=== PATIENT | male | born 1945 | race Caucasian/White ===

== ENCOUNTER 2020-02-29 13:11 | Emergency (ER) | payer MEDICARE, MEDICAID, SELFPAY ==
--- NOTE | ~2020-02-29 | CT_ITS ---
EXAMINATION: CT abdomen pelvis w con INDICATION: Diarrhea and lower abdominal pain TECHNIQUE: Computed tomographic images of the abdomen and pelvis were obtained after the administrati on of 100 cc of Omnipaque 350 intravenous contrast. The dose-length product (DLP) was 263.93 mGy-cm. Automated exposure control and iterative reconstruction technique were employed. COMPARISON: None available FINDINGS: Minimal dependent atelectasis is present in the lung bases. The heart size is normal. There is a small sliding hiatal hernia. The liver, spleen, pancreas, gallbladder, and adrenal glands are n ormal. Cysts of the kidneys measure up to 9 mm on the right. There is a 3 mm nonobstructing stone of the left kidney lower pole. No pathologically enlarged abdominal or pelvic lymph nodes are identified . There is no free intraperitoneal gas or evidence of bowel obstruction. There is calcified atheroscl erosis of the aorta and many of the other arteries. Colonic diverticulosis is present without evidenc e of diverticulitis. There is a right inguinal hernia containing a short segment of nonobstructed sma ll bowel. A diverticulum is noted in the left posterolateral bladder wall. There is severe lumbar spo ndylosis. IMPRESSION: 1. No CT correlate for the patient's symptoms. 2. Nonobstructing left nephrolithiasis. 3. Diverticulosis without diverticulitis. 4. Right inguinal hernia containing a short segment of nonobstructed small bowel. Reviewed, dictated and finalized at location A. IMPRESSION: 1. No CT correlate for the patient's symptoms. 2. Nonobstructing left nephrolithiasis. 3. Diverticulosis without diverticulitis. 4. Right inguinal hernia containing a short segment of nonobstructed small maya l.
[2020-02-29 13:27] VITALS: BP 130/61; PULSE 73; RESP 20; TEMP 36.7; O2SAT 100
--- NOTE | 2020-02-29 14:36 | ED.NAVMDI ---
HPI - Nausea/Vomiting/Diarrhea General Chief complaint: Nausea/Vomiting/Diarrhea Stated complaint: diarrhea Time Seen by Provider: 02/29/20 14:19 Source: patient Mode of arrival: ambulatory Limitations: no limitations History of Present Illness HPI Narrative: This is a 74 year old male that presents to the ER for diarrhea x 3 months. Reports a couple episodes of diarrhea daily. Reports he has had some lower abdominal pain. Reports sometimes the stool looks dark. Denies fever, nausea, vomiting, dysuria or hematuria. Related Data Home Medications Medication Instructions Recorded Confirmed No Home Medications 02/29/20 02/29/20 Allergies Allergy/AdvReac Type Severity Reaction Status Date / Time No Known Allergies Allergy Verified 02/29/20 13:30 Review of Systems Review of Systems: Narrative: CONSTITUTIONAL: Denies fever GASTROINTESTINAL: Reports abdominal pain and diarrhea. Denies nausea, vomiting GENITOURINARY: Denies dysuria or hematuria. All systems reviewed & are unremarkable except as noted in HPI and below PMFSH Past Medical History Medical History (Updated 02/29/20 @ 16:49 by Lucrecia Schultz PA-C) No active medical problems Social History Social History (Updated 02/29/20 @ 14:38 by Lucrecia Schultz PA-C) Smoking status: Never smoker Exam Narrative: Exam Narrative: GENERAL: Well-appearing, well-nourished, and in no acute distress. HEAD: Normocephalic, atraumatic. EYES: EOMI. CHEST: Clear to auscultation. No respiratory distress. No wheezes rales or rhonchi HEART: Regular rate and rhythm. No murmur heard. Normal peripheral pulses. ABDOMEN: Soft, nondistended, normal active bowel sounds. Mild tenderness to palpation throughout the lower abdomen, without guarding EXTREMITIES: Normal range of motion. No edema. SKIN: Warm, dry, no rash. NEURO: No focal deficits. Alert and oriented x3. PSYCH: Normal mood and affect RECTAL: Hemoccult negative Course Consultations Consultation #1: Spoke with Dr. De La Cruz about patient and work-up will follow-up in clinic. Date: 02/29/20 Time: 16:48 Vital Signs Vital signs: Vital Signs Temperature 98.0 F 02/29/20 13:27 Pulse Rate 73 02/29/20 13:27 Respiratory Rate 02/29/20 13:27 Blood Pressure 130/61 02/29/20 13:27 Pulse Oximetry 100 02/29/20 13:27 Temperature 98.0 F 02/29/20 13:27 Pulse Rate 73 02/29/20 13:27 Respiratory Rate 20 02/29/20 13:27 Blood Pressure 130/61 02/29/20 13:27 Pulse Oximetry 100 02/29/20 13:27 MDM - Nausea/Vomiting/Diarrhea MDM Narrative Medical decision making narrative: Patient presents the emergency department for diarrhea x3 months. He is afebrile and nontoxic-appearing. CBC and metabolic panel are without acute changes. CT abdomen pelvis is without acute changes. Shows nonobstructing left nephrolithiasis, diverticulosis and a right inguinal hernia containing a short segment of nonobstructed small bowel. Patient was unable to give us a stool sample in the ED. Spoke with Dr. De La Cruz about patient and work-up will follow-up in clinic. Patient is stable and felt appropriate for further outpatient evaluation. He is to follow-up with GI. Patient was given warnings to return to the ER Lab Data Attestation: I reviewed the patient's lab results. Result diagrams: 02/29/20 14:35 02/29/20 14:35 Labs: Lab Results 02/29/20 02/29/20 02/29/20 Range/Units 14:35 14:35 14:37 WBC 5.9 (4.5-10.0) K/mm3 RBC 5.18 (4.6-6.20) M/mm3 Hgb 15.9 (14.0-18.0) g/dL Hct 47.1 (42.0-52.0) % MCV 90.9 (80-100) fl MCH 30.7 (26-34) pg MCHC 33.8 (32-36) g/dl RDW 12.3 (11.5-14.5) % Plt Count 192 (150-375) k/mm3 MPV 10.4 (7.4-10.4) fl Immature Gran % (Auto) 0.3 (0-0.5) % Neut % (Auto) 56.9 (45.5-73.1) % Lymph % (Auto) 28.7 (18.3-44.2) % [place] % (Auto) 9.5 H (2.6-8.5) % Eos % (Auto) 3.2 (0-4.4) % Maviso
[2020-02-29 14:41] LABS: Basophils Absolute Auto 0.1 K/mm3 (0.0-0.1); Basophils Percent Auto 1.4 % (0.2-1.2); Eosinophils Absolute Auto 0.2 K/mm3 (0-0.3); Eosinophils Percent Auto 3.2 % (0-4.4); Hematocrit 47.1 % (42.0-52.0); Hemoglobin 15.9 g/dL (14.0-18.0); Immature Granulocyte Absolute 0.02 K/mm3 (0.00-0.031); Immature Granulocyte Percent A 0.3 % (0-0.5); Lymphocytes Absolute Auto 1.69 K/mm3 (0.9-3.2); Lymphocytes Percent Auto 28.7 % (18.3-44.2); Mean Corpuscular HGB Conc 33.8 g/dl (32-36); Mean Corpuscular Hemoglobin 30.7 pg (26-34); Mean Corpuscular Volume 90.9 fl (80-100); Mean Platelet Volume 10.4 fl (7.4-10.4); Monocytes Absolute Auto 0.6 K/mm3 (0.1-0.6); Monocytes Percent Auto 9.5 % (2.6-8.5); Neutrophils Absolute Auto 3.4 K/mm3 (1.3-6.7); Neutrophils Percent Auto 56.9 % (45.5-73.1); Platelet Count Result 192 k/mm3 (150-375); Red Blood Count 5.18 M/mm3 (4.6-6.20); Red Cell Distribution Width 12.3 % (11.5-14.5); White Blood Count 5.9 K/mm3 (4.5-10.0)
[2020-02-29 14:52] LABS: Alanine Aminotransferase 17 U/L (4-50); Albumin Level 3.9 g/dL (3.5-5.1); Alkaline Phosphatase 61 U/L (38-126); Aspartate Amino Transferase 17 U/L (17-59); Bilirubin,Total 0.6 mg/dL (0.2-1.3); Blood Urea Nitrogen 13 mg/dL (9-20); Calcium 9.7 mg/dL (8.4-10.2); Carbon Dioxide 25 mmol/L (22-30); Chloride 104 mmol/L (98-107); Estimated CRCL calculation 37 ml/min; Estimated Glomerular Filt Rate 54; Glucose 97 mg/dL (75-110); Lipase 101 U/L (23-300); Potassium 4.4 mmol/L (3.4-5.0); Sodium 136 mmol/L (137-145)
== END 2020-02-29 17:07 | disposition home or self-care (01) ==
PROVIDERS: Physician Assistant; Emergency Provider Emergency Medicine
DX: R19.7 Diarrhea, unspecified (principal); K57.90 Diverticulosis of intestine, part unspecified, without perforation or abscess without bleeding; K44.9 Diaphragmatic hernia without obstruction or gangrene; N20.0 Calculus of kidney
CPT/HCPCS: 36415; 74177; 80053; 83690; 85025; 86850; 86900; 86901; 99284; Q9967